=== PATIENT | female | born 1995 | race Two or more races ===

== ENCOUNTER 2018-01-18 09:51 | Outpatient (CLI) | payer OTHER | END 2018-01-18 10:00 | disposition home or self-care (01) | LOC: RAD 09:51 | DX: N20.0 Calculus of kidney (principal) ==

== ENCOUNTER 2018-01-23 12:09 | Inpatient (IN) | payer OTHER ==
[~2018-01-23] VITALS: Ht 162.6 cm; Wt 72.6 kg
[2018-01-24] MEDS ORDERED: KEFLEX500 MG PO (15:45)
[2018-01-24] MEDS ORDERED: DICLOFENAC POTA50 MG PO (15:49)
== END 2018-01-24 19:18 | disposition home or self-care (01) | DRG 694 ==
LOC: ER 12:09 → SEC-K 14:17 → SURH 14:17
PROVIDERS: Urology
PROC: 0T778DZ Dilation of Left Ureter with Intraluminal Device, Via Natural or Artificial Opening Endoscopic (ICD-10-PCS; 2018-01-24)
PROC: BT1FZZZ Fluoroscopy of Left Kidney, Ureter and Bladder (ICD-10-PCS; 2018-01-24)
PROC: 0TF78ZZ Fragmentation in Left Ureter, Via Natural or Artificial Opening Endoscopic (ICD-10-PCS; principal; 2018-01-24 12:30)
DX: N13.2 Hydronephrosis with renal and ureteral calculous obstruction (principal)

== ENCOUNTER 2018-01-27 20:54 | Emergency (ER) | payer OTHER ==
[~2018-01-27] VITALS: Ht 162.6 cm; Wt 72.6 kg
[~2018-01-27 20:54] MED LIST: DICLOFENAC POTA50 MG PO; KEFLEX500 MG PO
[2018-01-27] MEDS ORDERED: KEFLEX500 MG (21:38)
[2018-01-27] MEDS ORDERED: DICLOFENAC POTA50 MG (21:38)
[2018-01-28] MEDS ORDERED: KETO10TA2 PO (21:21)
== END 2018-01-28 21:53 | disposition home or self-care (01) ==
LOC: ER 20:54
DX: T83.32XA Displacement of intrauterine contraceptive device, initial encounter (principal); N20.2 Calculus of kidney with calculus of ureter; Z30.432 Encounter for removal of intrauterine contraceptive device

== ENCOUNTER 2022-03-09 07:10 | Inpatient (IN) | payer OTHER ==
[~2022-03-09] VITALS: Ht 152.4 cm; Wt 88.0 kg
[~2022-03-09 07:10] MED LIST changes: +DICLOFENAC POTA50 MG; +KEFLEX500 MG; +KETO10TA2 PO
--- NOTE | 2022-03-09 07:31 | NUR ---
PTE ALERTA Y ORIENTADA POR ELENO ESFERAS CON BUEN PATRON RESPIRATORIO. REFIERE TENER 4EP DE VOMITOS DESDE EL LAILA DE GERMAIN. SE VERIFICA PRESION MANUAL POR EL CUAL PTE PRESENTA 150/90MMHG
--- NOTE | 2022-03-09 09:09 | NUR ---
SE RECIBE PTE FEMENINA DE 26 YRS ALERTA CONCIENTE Y TRANQUILA EN PAULA CON BARANDAS ELEVADA , PTE ES EVALUADA POR EL ZAHIDA QUIE ORDENA TRATAMIENTO LA CUAL SE EJECUTA POR MS.DIAZ ROMAN.
--- NOTE | 2022-03-09 13:59 | NUR ---
SE LE REALIZA CTSCAN A PTE Y SE LE INSERTAS FOLIE CATEHTE LA CUAL SE CHRYSTAL MUESRTA DE UC. SE MANTIENE EN ESPERA DE MEDICO CONSULTOR , PRASANNA BYRNE LA CUAL SE MANTIENE NOTIFICADA POR EL JUMANA SEGURA. SE CONCECTA A MONITOR CARIDAOC Y OXIMENTRIA Y SE MANTIENE BAJO OBSRVACION EN LA UNIODAD DE CRITICO.
--- NOTE | 2022-03-09 15:30 | NUR ---
SE RECIBE PACIENTE EN CAMA CON MEDIDAS DE SEGURIDAD. LUCE ALERTA, CONSCIENTE Y ORIENTADAX3. BUEN PATRON RESPIRATORIO. ELFEGO DE DOLOR AL MOMENTO. CONECTADA A MONITOR CARDIACO Y OXIMETRIA DE PULSO. IV. PATENTE EN BRAZO VARUN. HAIR SIN PRESENCIA DE ORINA. PTE EN ESPERA DE SER [place]IST[place] EN CONSULTA POR EL DR. Cesia BYRNE.
--- NOTE | 2022-03-09 16:30 | NUR ---
DR. ANAYA PASA VISITA Y EVALUA PTE. COLOCA TRATAMIENTO NUEVO, SE LORI ORDENES Y SE EJECUTAN. CONSULTA CON GORROCHATEGUI NOTIFICADA POR EL DR. ANAYA.
== END 2022-03-20 23:57 | disposition designated cancer center or children's hospital (05) | DRG 682 ==
LOC: ER 07:10 → ICU 18:08 → ICU-2 18:08 → ICU 03-10 02:29 → SURH 03-13 10:32
PROVIDERS: ADMIT Internal Medicine; ATTEND Internal Medicine
PROC: 02HV33Z Insertion of Infusion Device into Superior Vena Cava, Percutaneous Approach (ICD-10-PCS; 2022-03-09)
PROC: 5A1D70Z Performance of Urinary Filtration, Intermittent, Less than 6 Hours Per Day (ICD-10-PCS; 2022-03-09)
PROC: BW21ZZZ Computerized Tomography (CT Scan) of Abdomen and Pelvis (ICD-10-PCS; 2022-03-09)
PROC: 02HV33Z Insertion of Infusion Device into Superior Vena Cava, Percutaneous Approach (ICD-10-PCS; 2022-03-10)
PROC: BW28ZZZ Computerized Tomography (CT Scan) of Head (ICD-10-PCS; 2022-03-10)
PROC: B24BZZZ Ultrasonography of Heart with Aorta (ICD-10-PCS; 2022-03-10)
PROC: 8E0ZXY6 Isolation (ICD-10-PCS; 2022-03-10)
PROC: 5A1D70Z Performance of Urinary Filtration, Intermittent, Less than 6 Hours Per Day (ICD-10-PCS; 2022-03-11)
PROC: 3E0F7SF Introduction of Other Gas into Respiratory Tract, Via Natural or Artificial Opening (ICD-10-PCS; 2022-03-11)
PROC: 5A1D70Z Performance of Urinary Filtration, Intermittent, Less than 6 Hours Per Day (ICD-10-PCS; 2022-03-13)
PROC: BT43ZZZ Ultrasonography of Bilateral Kidneys (ICD-10-PCS; 2022-03-13)
PROC: 4A12X4Z Monitoring of Cardiac Electrical Activity, External Approach (ICD-10-PCS; 2022-03-13)
PROC: 0TB13ZX Excision of Left Kidney, Percutaneous Approach, Diagnostic (ICD-10-PCS; principal; 2022-03-15)
PROC: 5A1D70Z Performance of Urinary Filtration, Intermittent, Less than 6 Hours Per Day (ICD-10-PCS; 2022-03-16)
PROC: 5A1D70Z Performance of Urinary Filtration, Intermittent, Less than 6 Hours Per Day (ICD-10-PCS; 2022-03-18)
PROC: 30243N1 Transfusion of Nonautologous Red Blood Cells into Central Vein, Percutaneous Approach (ICD-10-PCS; 2022-03-20)
PROC: BW21YZZ Computerized Tomography (CT Scan) of Abdomen and Pelvis using Other Contrast (ICD-10-PCS; 2022-03-20)
DX: I12.0 Hypertensive chronic kidney disease with stage 5 chronic kidney disease or end stage renal disease (principal); N18.6 End stage renal disease; N17.0 Acute kidney failure with tubular necrosis; N10 Acute pyelonephritis; N20.2 Calculus of kidney with calculus of ureter; I16.9 Hypertensive crisis, unspecified; N99.820 Postprocedural hemorrhage of a genitourinary system organ or structure following a genitourinary system procedure; D62 Acute posthemorrhagic anemia; E87.2 Acidosis; E87.79 Other fluid overload; E87.5 Hyperkalemia; E86.0 Dehydration; D63.1 Anemia in chronic kidney disease; D64.89 Other specified anemias; E66.8 Other obesity; J45.998 Other asthma; G43.801 Other migraine, not intractable, with status migrainosus; Z68.33 Body mass index [BMI] 33.0-33.9, adult; Z20.822 Contact with and (suspected) exposure to COVID-19